=== PATIENT | female | born 1985 | race African-American/Black ===

== ENCOUNTER 2018-03-30 18:09 | Emergency (ER) | payer OTHER ==
[~2018-03-30] VITALS: Ht 162.6 cm; Wt 74.8 kg
== END 2018-03-30 21:28 | disposition home or self-care (01) ==
LOC: ER 18:09
DX: S16.1XXD Strain of muscle, fascia and tendon at neck level, subsequent encounter (principal); M62.830 Muscle spasm of back; V49.88XD Car occupant (driver) (passenger) injured in other specified transport accidents, subsequent encounter

== ENCOUNTER 2018-12-03 08:37 | Emergency (ER) | payer OTHER ==
[~2018-12-03] VITALS: Ht 160 cm; Wt 74.8 kg
== END 2018-12-03 11:41 | disposition home or self-care (01) ==
LOC: ER 08:37
DX: N30.80 Other cystitis without hematuria (principal); N39.0 Urinary tract infection, site not specified

== ENCOUNTER 2019-01-25 14:51 | Emergency (ER) | payer OTHER ==
[~2019-01-25] VITALS: Ht 162.6 cm; Wt 72.6 kg
== END 2019-01-25 18:28 | disposition home or self-care (01) ==
LOC: ER 14:51
DX: J02.8 Acute pharyngitis due to other specified organisms (principal)

== ENCOUNTER 2019-05-31 20:12 | Emergency (ER) | payer OTHER ==
[~2019-05-31] VITALS: Ht 160 cm; Wt 72.6 kg
== END 2019-05-31 22:31 | disposition home or self-care (01) ==
LOC: ER 20:12
DX: S83.8X2A Sprain of other specified parts of left knee, initial encounter (principal); X50.0XXA Overexertion from strenuous movement or load, initial encounter; Y93.89 Activity, other specified; Y92.89 Other specified places as the place of occurrence of the external cause; Y99.8 Other external cause status

== ENCOUNTER 2020-04-25 08:27 | Emergency (ER) | payer OTHER ==
[~2020-04-25] VITALS: Ht 160 cm; Wt 72.6 kg
[2020-04-25] MEDS ORDERED: OSEL75CA PO (13:11)
[2020-04-25] MEDS ORDERED: ZITHROMAX500 MG PO (13:11)
== END 2020-04-25 13:17 | disposition home or self-care (01) ==
LOC: ER 08:27
DX: J02.0 Streptococcal pharyngitis (principal); Z20.828 Contact with and (suspected) exposure to other viral communicable diseases

== ENCOUNTER 2020-05-21 17:18 | Emergency (ER) | payer OTHER ==
[~2020-05-21] VITALS: Ht 160 cm; Wt 73.0 kg
[~2020-05-21 17:18] MED LIST: OSEL75CA PO; ZITHROMAX500 MG PO
[2020-05-21] MEDS ORDERED: GILTUSS TR TAB1 EACH (17:24)
== END 2020-05-21 20:41 | disposition home or self-care (01) ==
LOC: ER 17:18
DX: U07.1 COVID-19 (principal)

== ENCOUNTER 2021-08-22 20:42 | Emergency (ER) | payer OTHER ==
[~2021-08-22] VITALS: Ht 162.6 cm; Wt 81.6 kg
[~2021-08-22 20:42] MED LIST changes: +GILTUSS TR TAB1 EACH; +ZITHROMAX200 MG PO
[2021-08-22] MEDS ORDERED: DOLOGEN 325-11 EACH PO (23:34)
[2021-08-22] MEDS ORDERED: TUSNEL LIQUID178 ML PO (23:34)
[2021-08-22] MEDS ORDERED: MEDROLPACK PO (23:34)
[2021-08-22] MEDS ORDERED: FLONASE ALLERG9.9 ML NASAL (23:35)
== END 2021-08-23 00:28 | disposition home or self-care (01) ==
LOC: ER 20:42
DX: J06.9 Acute upper respiratory infection, unspecified (principal); R05.8 Other specified cough; J02.8 Acute pharyngitis due to other specified organisms; Z11.52 Encounter for screening for COVID-19

== ENCOUNTER 2021-09-15 12:23 | Emergency (ER) | payer OTHER ==
[~2021-09-15] VITALS: Ht 160 cm; Wt 81.6 kg
[~2021-09-15 12:23] MED LIST changes: +DOLOGEN 325-11 EACH PO; +FLONASE ALLERG9.9 ML NASAL; +MEDROLPACK PO; +TUSNEL LIQUID178 ML PO
== END 2021-09-15 15:30 | disposition home or self-care (01) ==
LOC: ER 12:23
DX: M25.522 Pain in left elbow (principal); Z88.0 Allergy status to penicillin

== ENCOUNTER 2022-04-11 08:06 | Emergency (ER) | payer OTHER ==
[~2022-04-11] VITALS: Ht 160 cm; Wt 78.5 kg
== END 2022-04-11 11:07 | disposition home or self-care (01) ==
LOC: ER 08:06
DX: U07.1 COVID-19 (principal); Z88.0 Allergy status to penicillin

== ENCOUNTER 2024-02-17 21:55 | Emergency (ER) | payer OTHER ==
[~2024-02-17] VITALS: Ht 162.6 cm; Wt 77.1 kg
[2024-02-17] MEDS ORDERED: KETOROLAC TROMETHAMINE 60 MG VIAL IM ONE (22:15)
[2024-02-17] MEDS ORDERED: ORPHENADRINE CITRATE 30 MG/ML AMPUL IM ONE (22:15)
[2024-02-17] MEDS ORDERED: ONDANSETRON HCL 2 MG/ML VIAL IM ONE (22:30)
[2024-02-17 23:14] LABS: HEMATOCRIT 33.5 % (36.0-45.00); MEAN CELL VOLUME 73.8 fL (80.00-100.00); MEAN CORPUSCULAR HEMOGLOBIN 24.2 pg (27.00-32.0); MEAN CORPUSCULAR HGB CONC 32.8 g/dl (32.0-36.0); PLATELET COUNT 195 K/uL (150-450); RED BLOOD COUNT 4.54 M/uL (4.00-6.00); RED CELL DISTRIBUTION WIDTH 16.6 % (11.5-14.5)
[2024-02-17 23:31] LABS: ALBUMIN 3.9 gm/dL (3.4-5.0); BILIRUBIN TOTAL 0.26 mg/dL (0.3-1.2); CREATININE SERUM 0.8 mg/dL (0.55-1.02); GFR 79.85; GLOBULINA 3.7 G/DL (2.4-3.5); POTASSIUM 4.54 mEq/L (3.5-5.1); TOTAL PROTEIN 7.6 gm/dL (6.4-8.2)
== END 2024-02-18 00:15 | disposition home or self-care (01) ==
LOC: ER 21:55
PROVIDERS: General Practice
DX: M94.0 Chondrocostal junction syndrome [Tietze] (principal); R07.89 Other chest pain; Z88.0 Allergy status to penicillin

== ENCOUNTER 2024-08-03 15:55 | Emergency (ER) | payer OTHER ==
[2024-08-03 16:17] VITALS: BP 94/59; O2SAT 100
[2024-08-03] MEDS ORDERED: IPRATROPIUM/ALBUTEROL SULFATE 3 ML AMPUL.NEB IH SCH (17:00)
[2024-08-03 18:31] LABS: HEMATOCRIT 32.8 % (36.0-45.00); HEMOGLOBIN 10.7 g/dL (12.0-15.00); MEAN CELL VOLUME 70.6 fL (80.00-100.00); MEAN CORPUSCULAR HGB CONC 32.6 g/dl (32.0-36.0); PLATELET COUNT 164 K/uL (150-450); RED BLOOD COUNT 4.65 M/uL (4.00-6.00); RED CELL DISTRIBUTION WIDTH 17.6 % (11.5-14.5)
[2024-08-03] MEDS ORDERED: OSEL75CA PO (20:13)
[2024-08-03] MEDS ORDERED: GILTUSS COUGH-118 M1 PO (20:13)
== END 2024-08-03 20:52 | disposition home or self-care (01) ==
LOC: ER 15:57
PROVIDERS: Preventive Medicine Public Health & General Preventive Medicine
DX: J10.1 Influenza due to other identified influenza virus with other respiratory manifestations (principal); Z20.822 Contact with and (suspected) exposure to COVID-19; Z88.0 Allergy status to penicillin; Z87.09 Personal history of other diseases of the respiratory system; G93.39 Other post infection and related fatigue syndromes; U09.9 Post COVID-19 condition, unspecified

== ENCOUNTER 2025-01-18 09:59 | Emergency (ER) | payer OTHER ==
[~2025-01-18] VITALS: Ht 157.5 cm; Wt 80.3 kg
[~2025-01-18 09:59] MED LIST changes: +GILTUSS COUGH-118 M1 PO
[2025-01-18] MEDS ORDERED: DEXAMETHASONE SODIUM PHOSPHATE 4 MG/ML VIAL IM STA (11:28)
[2025-01-18] MEDS ORDERED: KETOROLAC TROMETHAMINE 30 MG VIAL IM STA (11:28)
== END 2025-01-18 12:03 | disposition home or self-care (01) ==
LOC: ER 10:08
DX: M77.11 Lateral epicondylitis, right elbow (principal)